=== PATIENT | male | born 2000 | race Caucasian/White ===

== ENCOUNTER 2022-01-13 21:38 | Emergency (ER) | payer MEDICAID ==
[2022-01-13] MEDS ORDERED: Ketorolac 30 MG/ML SDV IM ONE (22:15)
[2022-01-13] MEDS ORDERED: Cyclobenzaprine 10 MG Tab PO ONE (22:15)
== END 2022-01-13 23:15 | disposition home or self-care (01) ==
LOC: JP.ED 21:38
DX: G89.29 Other chronic pain (principal); M54.50 Low back pain, unspecified; Z72.0 Tobacco use; Z86.16 Personal history of COVID-19
CPT/HCPCS: 96372; 99283; A9270; J1885

== ENCOUNTER 2022-04-22 17:54 | Emergency (ER) | payer MEDICAID ==
[2022-04-22] MEDS ORDERED: Sodium Chloride 0.9% 10 ML Syringe FLUSH PRN (18:20)
[2022-04-22] MEDS ORDERED: Ondansetron 4 MG/2 ML SDV IVPUSH ONE (18:20)
[2022-04-22] MEDS ORDERED: Sodium Chloride 0.9% 1,000 ML IV SCH (18:30)
[2022-04-22 19:09] LABS: ESTIMATED GFR 97 mL/min (>60)
[2022-04-22 19:22] LABS: CORONAVIRUS COVID-19 NAA NEGATIVE (NEGATIVE)
== END 2022-04-22 20:10 | disposition home or self-care (01) ==
LOC: JP.ED 17:54
DX: K52.9 Noninfective gastroenteritis and colitis, unspecified (principal); Z20.822 Contact with and (suspected) exposure to COVID-19
CPT/HCPCS: 0241U; 36415; 80053; 83690; 85025; 86140; 96361; 96374; 99284; J2405; J3490; J7030; 99283